=== PATIENT | female | born 1935 | race Caucasian/White ===

== ENCOUNTER 2017-12-25 18:59 | Inpatient (IN) | payer MEDICARE, BC, SELFPAY ==
[2017-12-25 19:01] VITALS: BP 140/90; PULSE 86; RESP 18; TEMP 36.8; O2SAT 97
--- NOTE | 2017-12-25 19:36 | CT_ITS ---
STUDY: CT BRAIN WITHOUT CONTRAST REASON FOR EXAM: Female, 82 years old. Confusion RADIATION DOSAGE (If Supplied By Facility): CTDIvol = ( 44.99 ) mGy, DLP = ( 762.36 ) mGycm TECHNIQUE: Transaxial CT imaging of the brain was performed without administration of intravenous contrast material. Individualized dose optimization techniques were used for this CT. COMPARISON: None. FINDINGS: Normal soft tissue structures. Normal calvarium. There is mild cerebral atrophy with widening of the extra-axial spaces and ventricular dilatation. Normal white matter tracts of the cerebral hemispheres. 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 Normal brainstem. Normal cerebellum. There is no intracranial hemorrhage. There are no findings of an acute ischemic infarction. Normal visualized paranasal sinuses. CT/Brain/Head without Contrast IMPRESSION: Chronic involutional changes of the brain. 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 Electronically Signed: Catracho Mayer MD at 20:44 EDT , Service support ,
--- NOTE | 2017-12-25 19:36 | EKG12_ITS ---
Test Reason : [facility] [place] Blood Pressure : / mmHG Vent. Rate : 073 BPM Atrial Rate : 073 BPM P-R Int : 158 ms QRS Dur : 124 ms QT Int : 432 ms P-R-T Axes : 083 -41 107 degrees QTc Int : 475 ms Normal sinus rhythm Left axis deviation Left bundle branch block Abnormal ECG Confirmed by ARMANDO VOSS, NONA ([id number]), marketing editor CRISTIN WATTERS ([id number] on 12/28/2017 2:48:31 PM Referred By: Confirmed By:NONA ROBERTS MD
--- NOTE | 2017-12-25 19:36 | RAD_ITS ---
STUDY: X-RAY CHEST REASON FOR EXAM: Female, 82 years old. Confusion TECHNIQUE: PA and lateral views of the chest. COMPARISON: None. FINDINGS: There is hyperinflation of the lungs consistent with chronic obstructive lung disease (COPD). There is no demonstrated pleural abnormality. Normal size heart. Normal mediastinum and lauro. Normal visualized pulmonary arteries. There are calcified plaques of the aortic arch. There is demineralization of the osseous structures. Normal visualized ribs, clavicles, and shoulders. There is no demonstrated abnormality of the visualized soft tissue structures of the upper abdomen. RAD/Chest PA and Lateral IMPRESSION: Findings consistent with COPD. Generalized osteopenia. Calcified plaques of the aortic arch. No acute cardiopulmonary disease process is seen. Electronically Signed: Catracho Mayer MD at 21:36 EDT , Service support ,
[2017-12-25 20:07] LABS: Absolute Lymphocyte Count 1.28 X10^3/ul (0.83-4.51); Absolute Neutrophil Count 2.3 X10^3/uL (2.0-7.7); Basophil# 0.03 X10^3/uL; Basophil% 0.7 % (0-1); Eosinophil# 0.05 X10^3/uL; Eosinophils% 1.2 % (0-5); Hematocrit 37.4 % (37-47); Hemoglobin 12.4 g/dl (12.0-15.0); Lymphocyte # 1.28 X10^3/ul (4.0); Lymphocyte % 31.8 % (19-41); Mean Corp Hgb Conc 33.2 g/gl (32-36); Mean Corpuscular Hgb 30.9 pg (27.0-32.0); Mean Corpuscular Volume 93.3 fL (81-99); Mean Platelet Vol. 8.9 fl (6.2-12.0); Monocyte# 0.37 X10^3/uL; Monocyte% 9.2 % (0-10); Neutrophil # 2.28 X10^3/uL (2.7-7.7); Neutrophil % 56.9 % (47-70); Platelet Count 282 K/mm3 (150-450); RBC Distribution Width CV 14.2 % (11.6-14.6); RBC Distribution Width SD 46.8 fl (35.1-43.9); Red Blood Count 4.01 M/mm3 (4.2-5.4)
[2017-12-25 20:10] LABS: POSITIVE COUNT NO; POSITIVE DIFFERENTIAL NO; POSITIVE MORPHOLOGY NO
[2017-12-25 20:18] LABS: AST(SGOT) 18 U/L (15-37); Alanine Aminotransfer ALT/SGPT 21 U/L (13-56); Alkaline Phosphatase 68 U/L (45-117); Anion Gap 8 (5-15); BUN 22 mg/dL (7-18); BUN/Creat Ratio 26.7 RATIO (10-20); Calcium,Total 8.9 mg/dL (8.5-10.1); Chloride 103 mmol/L (98-107); Creatinine, Serum 0.82 mg/dL (0.55-1.02); EST Glomerular Filtration Rate 71 mL/min (>60); Est Glom Filt Rate - Afr Amer 85 mL/min (>60); Estimated Creatinine Clearance 39.91 ml/min; Globulin 3.9 g/dL (2.2-4.2); Glucose 66 mg/dL (74-106); Potassium 3.8 mmol/L (3.5-5.1); Protein, Total 7.9 g/dL (6.4-8.2); Sodium Level 138 mmol/L (136-145)
[2017-12-25 20:48] LABS: Mucous, Urine 0 SEEN /hpf (<or=2+)
[2017-12-25 20:51] LABS: Color, Urine Yellow (Yellow); Glucose, Dipstick Normal (Normal); Ketone-Dipstick 50 mg/dl (Negative); Leukocyte Esterase-Dipstick 500 /ul (Negative); Nitrite-Dipstick Positive (Negative); Occult Blood-Urine 50 /ul (Negative); Protein-Dipstick 15 mg/dl (Negative); Specific Gravity, Urine 1.025 (1.002-1.030); Urine Clarity Sl. Cloudy (Clear); Urine Urobilinogen Normal (Normal)
[2017-12-25 20:52] LABS: Urine Bilirubin Dipstick 1 mg/dL (Negative)
[2017-12-25 20:57] LABS: Bacteria 2+ /hpf (None Seen); Red Blood Cells-Urine 0-5 SEEN /hpf (0-5); Squamous Epithelial Cells - UA 0-5 SEEN /hpf (5-10); White Blood Cells 10-25 SEEN /hpf (0-5)
--- NOTE | 2017-12-25 21:04 | ED.VISSUMM ---
- ER Visit Summary Date of Service: 12/25/17 Chief Complaint: Confusion not able to care for herself History of Present Illness: The patient is a 82 F who presents with confusion. She is brought in by the son and daughter. They both [place]. They have not seen her in about 5 years. They were called by a concerned neighbor. The son checked on her today. Her house was a mess. There were multiple dirty dishes. They states that there were chipmunks in the refrigerator. They state that there was a mummified In the house that they are uncertain when it . They state that 5 years ago the last time they saw her her house was immaculate. The patient denies any complaints or recent illness. She denies any pain fevers vomiting. Physical Examination: Febrile vitals are normal Moist mucous membranes Heart regular rate and rhythm Lungs are clear Abdomen soft Alert but oriented to person only. She knows that she is at a hospital but is unable to tell which one. When asked the month she stated it was either April or May or June. When asked how old she is she stated 65. She does not have focal or lateralizing neurological deficits Test Results: EKG shows normal sinus rhythm at a rate of 73 with a left bundle branch block. Laboratory studies notable for 500 leukocyte esterase positive nitrates 10-25 WBCs and 2+ bacteria in the urine. Chest x-ray shows no acute process on my review. CT of the head shows chronic changes and an old lacunar infarct of the left caudate head. Emergency Department Course and Treatment: Patient will be given IV Rocephin for UTI. Given her inability to care for herself significant confusion she will need admitted and will ultimately likely need placement. Treatment Plan: [] Disposition: Admit Impression: UTI Confusion This note was generated with [employer] dictation software. It may contain incorrect words, spelling, and punctuation that were not noted in review of the chart prior to signing ED Disposition - Plan for ED Patient: Chief Complaint: Mental Status Change Referrals: Care Physician,No Primary [Primary Care Provider] -
[2017-12-25] MEDS: Haloperidol Lactate 5 MG/ML Vial 1 MG IV (21:50)
[2017-12-25 21:55] VITALS: BP 160/66; PULSE 72; PULSE 74; RESP 18; O2SAT 100; O2SAT 99
[2017-12-25 22:08] VITALS: BP 153/78; PULSE 72; RESP 18
[2017-12-25] MEDS: LORazepam 2 MG/ML Syringe 0.5 MG IV (22:19)
[2017-12-25 23:02] VITALS: RESP 18
--- NOTE | 2017-12-25 23:38 | HP.PCM_ITS ---
Problem List (1) Dementia Status: Acute (2) Altered mental status Status: Acute (3) UTI (urinary tract infection) Status: Acute History of Present Illness Date of Admission: 12/25/17 Chief Complaint: Alter mental status The patient is a 82 year old female w/ no known medical history is admitted for alter mental status. She was unable to provide any history. History is taken from her son and daughter who lasted saw her was 5 years ago. They don't know much about their mother. She does not even recognize them. She called her daughter her friend. They claimed that this is not her baseline. Her house was a mess with chipmunks in the refrigeratory and a mummified cat in the house. A concern neighbor alerted them to check on her. They remembered that her house was clean. She denies any other symptoms. Past Medical History Allergies No Known Allergies Allergy (Verified 12/25/17 19:10) Home Medications: Ambulatory Orders Medication Instructions Recorded NK [NK] 12/25/17 Psychiatric History: No pertinent psych hx INCLUSION SPECIAL EDUCATOR History: No pertinent INCLUSION SPECIAL EDUCATOR history Smoking Status: Never smoker Alcohol: None Drugs: None - *Family History Maternal History Items: No pertinent history Review of Systems Unable to obtain accurate/complete ROS d/t: Unable to obtain secondary to dementia. VTE Information - Inpt Only VTE Present on Admission: No VTE Mechan Device Prophylaxis: SCD's VTE Pharm Prophylaxis ordered?: Yes Patient Problems: Active and Suspected Problems Dementia (Acute) Altered mental status (Acute) UTI (urinary tract infection) (Acute) - Physical Exam General: No apparent distress, Confused, Disoriented HEENT: Atraumatic, PERRLA, EOMI, Normocephalic Neck: Supple, No JVD, Negative Carotid Bruits Lungs: Clear to auscultation, Normal air movement Cardiovascular: Regular rate, No murmurs Abdomen: Bowel Sounds Present, Soft, Non Tender Extremities: No edema, Capillary Refill Less than 3 Seconds Skin: No rashes, No breakdown Musculoskeletal: No Tenderness to Palpation of Joints or Extremities Neurological: Cranial nerves II-XII grossly intact Psych/Mental Status: Impulsive, Irrational Behavior Vital Signs Temp Pulse Resp BP Pulse Ox 98.2 F 72 18 153/78 H 100 12/25/17 19:01 12/25/17 22:08 12/25/17 23:02 12/25/17 22:08 12/25/17 21:55 Oxygen Delivery Method Room Air Weight: 48.081 kg Body Mass Index (BMI) 20.0 Laboratory Tests Past 24 Hrs 12/25/17 12/25/17 12/25/17 19:48 19:48 20:40 WBC 4.0 L RBC 4.01 L Hgb 12.4 Hct 37.4 MCV 93.3 MCH 30.9 MCHC 33.2 RDW 14.2 RDW Differential 46.8 H Plt Count 282 MPV 8.9 Immature Gran % (Auto) 0.200 Neut % (Auto) 56.9 Lymph % (Auto) 31.8 [place] % (Auto) 9.2 Eos % (Auto) 1.2 Baso % (Auto) 0.7 Absolute Neuts (auto) 2.3 Absolute Lymphs (auto) 1.28 Total Counted Not Reportable Sodium 138 Potassium 3.8 Chloride 103 Carbon Dioxide 27.0 Anion Gap 8 BUN 22 H Creatinine 0.82 Estim Creat Clear Calc 39.91 Est GFR (MDRD) Af Amer 85 Est GFR (MDRD) Non-Af 71 BUN/Creatinine Ratio 26.7 H Glucose 66 L Calcium 8.9 Total Bilirubin 0.80 AST 18 ALT 21 Alkaline Phosphatase 68 Total Protein 7.9 Albumin 4.0 Globulin 3.9 Albumin/Globulin Ratio 1.0 Urine Color Yellow Urine Clarity Sl. Cloudy Urine pH 5.0 Ur Specific [place] 1.025 Urine Protein 15 H Urine Glucose (UA) Normal Urine Ketones 50 H Urine Occult Blood 50 H Urine Nitrite Positive H Urine Bilirubin 1 H Urine Urobilinogen Normal Ur Leukocyte Esterase 500 H Urine RBC 0-5 SEEN Urine WBC 10-25 SEEN Ur Squamous Epith Cells 0-5 SEEN Urine Bacteria 2+ Urine Mucus 0 SEEN Assessment/Plan Active and Suspected Problems Dementia (Acute) Altered mental status (Acute) UTI (urinary tract infection) (Acute) 82 year old female w/ no known medical history is admitted for alter mental status. 1) Alter mental status: Unclear baseline. CT head negative. Will get folate / B12, ammonia, TSH, RPR, and cultures. Possible secondary to UTI with underlying dementia. Consulted neurology. 2) UTI: Cultures pending. C/w cipro. Pt is refusing IV placement. 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 CT disclosed old infarcts. Supportive care. 4) Dispo: Probably will need placement.
[2017-12-26 00:35] VITALS: BP 177/72; PULSE 77; RESP 14; TEMP 36.8; O2SAT 95
[2017-12-26 00:43] VITALS: BMI 14.0
--- NOTE | 2017-12-26 01:20 | NURSING ---
Pt resistive to call care. This RN and discharge specialist and INSTRUMENT STERILIZERChristine attempted to remove patients gown and put mechatronics engineer on pt. Pt becomes combative when attempting remove clothes, connect mechatronics engineer or establish IV access. Pt resisting all care and assessment by this RN. Doctor notified of pt's agitation and resistance to care.
--- NOTE | 2017-12-26 01:31 | NURSING ---
Pt resistive to all care. Assessment performed to the best of this RN's ability. Pt becomes combative when attempting to perform assessments or ask admission questions.
[2017-12-26 01:35] LABS: Ammonia < 10.0 umol/L (11-32)
[2017-12-26 01:50] LABS: Thyroid Stim Hormone (TSH) 1.46 uIU/mL (0.358-3.74)
[2017-12-26 04:47] LABS: Rapid Plasmin Reagin (RPR) NONREACTIVE (NONREACTIVE)
--- NOTE | 2017-12-26 05:37 | NURSING ---
Pt continuing to be resistive to care. Assessment attempted by this RN to the best of my ability. Unable to complete NIH stroke assessment. motorcycle builder Steven Martinez notified of pt being resistive to care. Dr. Salgado notified of pt being resistive to care.
[2017-12-26 06:26] VITALS: BP 128/61; PULSE 73; RESP 14; TEMP 36.8; O2SAT 97
[2017-12-26 07:03] LABS: Hematocrit 35.2 % (37-47); Hemoglobin 11.6 g/dl (12.0-15.0); Mean Corpuscular Hgb 30.9 pg (27.0-32.0); Mean Corpuscular Volume 93.9 fL (81-99); Platelet Count 248 K/mm3 (150-450); RBC Distribution Width SD 46.2 fl (35.1-43.9); Red Blood Count 3.75 M/mm3 (4.2-5.4); White Blood Count 3.2 K/mm3 (4.4-11.0)
[2017-12-26 07:05] LABS: Scan Indicated on CBC? Y/N NO
[2017-12-26 08:04] LABS: Anion Gap 12 (5-15); BUN 20 mg/dL (7-18); BUN/Creat Ratio 44.7 RATIO (10-20); Calcium,Total 8.4 mg/dL (8.5-10.1); Chloride 106 mmol/L (98-107); Cholesterol 267 mg/dL (200); Creatinine, Serum 0.45 mg/dL (0.55-1.02); EST Glomerular Filtration Rate 143 mL/min (>60); Est Glom Filt Rate - Afr Amer 173 mL/min (>60); Estimated Creatinine Clearance 23.08 ml/min; Glucose 49 mg/dL (74-106); High Density Lipoprotein 76 mg/dL; Potassium 3.7 mmol/L (3.5-5.1); Sodium Level 140 mmol/L (136-145); Triglycerides 81 mg/dL; Very Low Density Lipoprotein 16 mg/dL (5-40)
[2017-12-26] MEDS: Ciprofloxacin 500 MG Tablet PO ×2 (09:08→22:30)
[2017-12-26] MEDS: LORazepam 2 MG/ML Syringe 1 MG IM ×3 (09:48→19:46)
[2017-12-26 11:29] VITALS: BP 129/76; PULSE 97; RESP 16; TEMP 36.9; O2SAT 96
--- NOTE | 2017-12-26 12:37 | NURSING ---
pt very confused, refusing care
--- NOTE | 2017-12-26 12:37 | NURSING ---
pt refusing to stay in room. taking turns with other staff members so that someone is one on one with patient
[2017-12-26 13:13] LABS: Vitamin B12 521 pg/mL (211-911)
--- NOTE | 2017-12-26 13:26 | PCM.PN.HOSP ---
Patient Problems: Active and Suspected Problems Dementia (Acute) Altered mental status (Acute) UTI (urinary tract infection) (Acute) Subjective: confused. talking of many tangential topics many of which make no sense. Vitals/I&O's: Vital Signs Temp Pulse Resp BP Pulse Ox 36.9 C 97 16 129/76 H 96 12/26/17 11:29 12/26/17 11:29 12/26/17 11:29 12/26/17 11:29 12/26/17 11:29 Oxygen Delivery Method Room Air Weight: 33.7 kg Body Mass Index (BMI) 20.0 Intake and Output for Last 24 Hours 12/24/17 12/25/17 12/26/17 23:59 23:59 23:59 Intake Total 100 / 100 Balance 100 / 100 General: Cooperative, No apparent distress, Confused HEENT: Atraumatic, Normocephalic Neck: No Nodes, Thyroid Normal Size and Texture Lungs: Clear to auscultation, Normal air movement, No rhonchi, No wheeze Cardiovascular: Regular rate, Regular Rhythm, Normal S1, Normal S2 Abdomen: Bowel Sounds Present, Soft, Non Tender, Non-Distended, No Hepato-splenomegaly Extremities: No edema, No Calf Tenderness Skin: No rashes, No breakdown Musculoskeletal: No Tenderness to Palpation of Joints or Extremities, No Muscle Wasting Neurological: Cranial nerves II-XII grossly intact, Neuro grossly intact, Coordination normal, Gait narrow based and stable Psych/Mental Status: Normal Affect, Appropriate Laboratory Results 12/26/17 00:55: Troponin I < 0.015, Folate 18.20, TSH 1.46 12/26/17 00:55: Ammonia < 10.0 L 12/26/17 00:55: RPR NONREACTIVE 12/26/17 00:55: Vitamin B12 521 12/26/17 05:58: WBC 3.2 L, RBC 3.75 L, Hgb 11.6 L, Hct 35.2 L, MCV 93.9, MCH 30.9, MCHC 33.0, RDW 14.0, RDW Differential 46.2 H, Plt Count 248, MPV 9.0 12/26/17 05:58: Sodium 140, Potassium 3.7, Chloride 106, Carbon Dioxide 22.0, Anion Gap 12, BUN 20 H, Creatinine 0.45 L, Estim Creat Clear Calc 23.08, Est GFR (MDRD) Af Amer 173, Est GFR (MDRD) Non-Af 143, BUN/Creatinine Ratio 44.7 H, Glucose 49 L, Calcium 8.4 L, Triglycerides 81, Cholesterol 267 H, LDL Cholesterol 175 H, VLDL Cholesterol 16, HDL Cholesterol 76 Current Medications Ciprofloxacin HCl (Cipro) 500 mg PO BID PENDING SALE TO [facility] Last Admin: 12/26/17 09:08 Dose: 500 mg Enoxaparin Sodium (Lovenox) 40 mg SC DAILY@0600 PENDING S[facility] TO [facility] Last Admin: 12/26/17 05:27 Dose: Not Given Lorazepam (Ativan) 1 mg IM Q4H PRN PRN PRN Reason: AGITATION Last Admin: 12/26/17 09:48 Dose: 1 mg Magnesium Hydroxide (Milk Of Magnesia) 30 ml PO DAILY PRN PRN Reason: Constipation Nutritional Formula (Lactose Free) (Ensure Enlive) 120 ml PO 4X/DAY [facility]END[facility] S[facility] TO [facility] Last Admin: 12/26/17 09:08 Dose: Not Given Medical Necessity - Tobacco Use Smoking Status: Unknown if ever smoked Assessment/Plan Active and Suspected Problems Dementia (Acute) Altered mental status (Acute) UTI (urinary tract infection) (Acute) 1. confusion: as patient has been living a secluded life with no meaningful contact with family in years, this is not acute. no further inpatient work up is necessary B12, folate and TSH are WNL I suspect patient has underlying psych issues that may have been much milder when she lucid, that are now compounded by possibly underlying dementia much of her work up for dementia and psych issues can be assessed outside of the hospital however, given patient's inability to adequately care for herself, i feel she would be best suited in a [facility] until to help tease out the separate issues patient has no further inpatient hospitalization needs. I do not feel an MRI is necessary as she has no focal deficits the confusion may be new to the family, but they have not had contact with her in ~5 years 2. UTI: may be contributing to a degree to her confusion, but not much of this is most likely chronic continue cipro through 01/01 no culture was done, since already on abx, I will not order 3. DVT proph: LMWH. Code Visit Inpatient E&M: 73378 Subs Hosp L3
--- NOTE | 2017-12-26 13:37 | PN_ITS ---
Patient Problems: Active and Suspected Problems Dementia (Acute) Altered mental status (Acute) UTI (urinary tract infection) (Acute) Subjective: confused. talking of many tangential topics many of which make no sense. Vitals/I&O's: Vital Signs Temp Pulse Resp BP Pulse Ox 36.9 C 97 16 129/76 H 96 12/26/17 11:29 12/26/17 11:29 12/26/17 11:29 12/26/17 11:29 12/26/17 11:29 Oxygen Delivery Method Room Air Weight: 33.7 kg Body Mass Index (BMI) 20.0 Intake and Output for Last 24 Hours 12/24/17 12/25/17 12/26/17 23:59 23:59 23:59 Intake Total 100 / 100 Balance 100 / 100 General: Cooperative, No apparent distress, Confused HEENT: Atraumatic, Normocephalic Neck: No Nodes, Thyroid Normal Size and Texture Lungs: Clear to auscultation, Normal air movement, No rhonchi, No wheeze Cardiovascular: Regular rate, Regular Rhythm, Normal S1, Normal S2 Abdomen: Bowel Sounds Present, Soft, Non Tender, Non-Distended, No Hepato- splenomegaly Extremities: No edema, No Calf Tenderness Skin: No rashes, No breakdown Musculoskeletal: No Tenderness to Palpation of Joints or Extremities, No Muscle Wasting Neurological: Cranial nerves II-XII grossly intact, Neuro grossly intact, Coordination normal, Gait narrow based and stable Psych/Mental Status: Normal Affect, Appropriate Laboratory Results 12/26/17 00:55: Troponin I < 0.015, Folate 18.20, TSH 1.46 12/26/17 00:55: Ammonia < 10.0 L 12/26/17 00:55: RPR NONREACTIVE 12/26/17 00:55: Vitamin B12 521 12/26/17 05:58: WBC 3.2 L, RBC 3.75 L, Hgb 11.6 L, Hct 35.2 L, MCV 93.9, MCH 30.9, MCHC 33.0, RDW 14.0, RDW Differential 46.2 H, Plt Count 248, MPV 9.0 12/26/17 05:58: Sodium 140, Potassium 3.7, Chloride 106, Carbon Dioxide 22.0, Anion Gap 12, BUN 20 H, Creatinine 0.45 L, Estim Creat Clear Calc 23.08, Est GFR (MDRD) Af Amer 173, Est GFR (MDRD) Non-Af 143, BUN/Creatinine Ratio 44.7 H, Glucose 49 L, Calcium 8.4 L, Triglycerides 81, Cholesterol 267 H, LDL Cholesterol 175 H, VLDL Cholesterol 16, HDL Cholesterol 76 Current Medications Ciprofloxacin HCl (Cipro) 500 mg PO BID [facility] Last Admin: 12/26/17 09:08 Dose: 500 mg Enoxaparin Sodium (Lovenox) 40 mg SC DAILY@0600 [facility] Last Admin: 12/26/17 05:27 Dose: Not Given Lorazepam (Ativan) 1 mg IM Q4H PRN PRN PRN Reason: AGITATION Last Admin: 12/26/17 09:48 Dose: 1 mg Magnesium Hydroxide (Milk Of Magnesia) 30 ml PO DAILY PRN PRN Reason: Constipation Nutritional Formula (Lactose Free) (Ensure Enlive) 120 ml PO 4X/DAY [facility] Last Admin: 12/26/17 09:08 Dose: Not Given Medical Necessity - Tobacco Use Smoking Status: Unknown if ever smoked Assessment/Plan Active and Suspected Problems Dementia (Acute) Altered mental status (Acute) UTI (urinary tract infection) (Acute) 1. confusion: * as patient has been living a secluded life with no meaningful contact with family in years, this is not acute. * no further inpatient work up is necessary * B12, folate and TSH are WNL * I suspect patient has underlying psych issues that may have been much milder when she lucid, that are now compounded by possibly underlying dementia * much of her work up for dementia and psych issues can be assessed outside of the hospital * however, given patient's inability to adequately care for herself, i feel she would be best suited in a [facility] until to help tease out the separate issues * patient has no further inpatient hospitalization needs. I do not feel an MRI is necessary as she has no focal deficits * the confusion may be new to the family, but they have not had contact with her in ~5 years 2. UTI: * may be contributing to a degree to her confusion, but not much of this is most likely chronic * continue cipro through 01/01 * no culture was done, since already on abx, I will not order 3. DVT proph: LMWH. Code Visit Inpatient E&M: [id number] Subs Hosp L3
[2017-12-26 16:28] LABS: Amphetamine Urine VISTA NEGATIVE (<1000 ng/mL); Barbiturate Urine VISTA NEGATIVE (< 200 ng/mL); Benzodiazepine Urine VISTA NEGATIVE (< 200 ng/mL); Cocaine Urine VISTA NEGATIVE (< 300 ng/mL); Ecstacy Urine VISTA NEGATIVE (< 500 ng/mL); Methadone Urine VISTA NEGATIVE (< 300 ng/mL); PCP Urine VISTA NEGATIVE (< 25 ng/mL); THC Urine VISTA NEGATIVE (< 50 ng/mL); Vista UDS pH Range 4
[2017-12-26 17:20] VITALS: BP 143/87; PULSE 93; RESP 16; TEMP 36.4; O2SAT 94
[2017-12-26 22:21] VITALS: BP 163/74; PULSE 76; RESP 16; TEMP 36.9; O2SAT 98
[2017-12-26] MEDS: QUEtiapine 25 MG Tablet PO (22:30)
[2017-12-27 04:55] VITALS: BP 144/92; PULSE 87; RESP 16; TEMP 36.9; O2SAT 98
--- NOTE | 2017-12-27 09:29 | PCM.PN.HOSP ---
Patient Problems: Active and Suspected Problems Dementia (Acute) Altered mental status (Acute) UTI (urinary tract infection) (Acute) Subjective: Was marked around the hallways much all day yesterday. Today, patient is sleeping. According to the sitter at her bedside, no issues this morning. Vitals/I&O's: Vital Signs Temp Pulse Resp BP Pulse Ox 36.9 C 87 16 144/92 H 98 12/27/17 04:55 12/27/17 04:55 12/27/17 04:55 12/27/17 04:55 12/27/17 04:55 Oxygen Delivery Method Room Air Weight: 33.7 kg Body Mass Index (BMI) 20.0 Intake and Output for Last 24 Hours 12/25/17 12/26/17 12/27/17 23:59 23:59 23:59 Intake Total 250 / 250 0 / 0 Balance 250 / 250 0 / 0 General: - - Being, did not awake. Afebrile. HEENT: Atraumatic, Normocephalic Neck: No Nodes, Thyroid Normal Size and Texture Musculoskeletal: Cachexia, Muscle Wasting Laboratory Results 12/26/17 00:55: Vitamin B12 521 Current Medications Ciprofloxacin HCl (Cipro) 500 mg PO BID COUNT [facility]CLUD[facility] Last Admin: 12/26/17 22:30 Dose: 500 mg Enoxaparin Sodium (Lovenox) 40 mg SC DAILY@0600 COUNT INCLUDES THE [facility] Last Admin: 12/27/17 05:03 Dose: Not Given Lorazepam (Ativan) 1 mg IM Q4H PRN PRN PRN Reason: AGITATION Last Admin: 12/26/17 19:46 Dose: 1 mg Magnesium Hydroxide (Milk Of Magnesia) 30 ml PO DAILY PRN PRN Reason: Constipation Nutritional Formula (Lactose Free) (Ensure Enlive) 120 ml PO 4X/DAY COUNT INCLUDES THE [facility] Last Admin: 12/26/17 22:30 Dose: 120 ml Quetiapine Fumarate (Seroquel) 25 mg PO QHS COUNT INCLUDES THE [facility] Last Admin: 12/26/17 22:30 Dose: 25 mg Medical Necessity - Tobacco Use Smoking Status: Unknown if ever smoked Assessment/Plan Active and Suspected Problems Dementia (Acute) Altered mental status (Acute) UTI (urinary tract infection) (Acute) 1. confusion: as patient has been living a secluded life with no meaningful contact with family in years, this is not acute. no further inpatient work up is necessary B12, folate and TSH are WNL I suspect patient has underlying psych issues that may have been much milder when she lucid, that are now compounded by possibly underlying dementia much of her work up for dementia and psych issues can be assessed outside of the hospital however, given patient's inability to adequately care for herself, i feel she would be best suited in a [facility] until to help tease out the separate issues patient has no further inpatient hospitalization needs. I do not feel an MRI is necessary as she has no focal deficits the confusion may be new to the family, but they have not had contact with her in ~5 years Patient has been pink slipped. Patient is medically stable for discharge to an inpatient psych unit. 2. UTI: may be contributing to a degree to her confusion, but not much of this is most likely chronic continue cipro through 01/01 no culture was done, since already on abx, I will not order 3. DVT proph: LMWH. Code Visit Inpatient E&M: [id number] Subs Hosp L2
--- NOTE | 2017-12-27 09:32 | PN_ITS ---
Patient Problems: Active and Suspected Problems Dementia (Acute) Altered mental status (Acute) UTI (urinary tract infection) (Acute) Subjective: Was marked around the hallways much all day yesterday. Today, patient is sleeping. According to the sitter at her bedside, no issues this morning. Vitals/I&O's: Vital Signs Temp Pulse Resp BP Pulse Ox 36.9 C 87 16 144/92 H 98 12/27/17 04:55 12/27/17 04:55 12/27/17 04:55 12/27/17 04:55 12/27/17 04:55 Oxygen Delivery Method Room Air Weight: 33.7 kg Body Mass Index (BMI) 20.0 Intake and Output for Last 24 Hours 12/25/17 12/26/17 12/27/17 23:59 23:59 23:59 Intake Total 250 / 250 0 / 0 Balance 250 / 250 0 / 0 General: - - Being, did not awake. Afebrile. HEENT: Atraumatic, Normocephalic Neck: No Nodes, Thyroid Normal Size and Texture Musculoskeletal: Cachexia, Muscle Wasting Laboratory Results 12/26/17 00:55: Vitamin B12 521 Current Medications Ciprofloxacin HCl (Cipro) 500 mg PO BID [facility] Last Admin: 12/26/17 22:30 Dose: 500 mg Enoxaparin Sodium (Lovenox) 40 mg SC DAILY@0600 [facility] Last Admin: 12/27/17 05:03 Dose: Not Given Lorazepam (Ativan) 1 mg IM Q4H PRN PRN PRN Reason: AGITATION Last Admin: 12/26/17 19:46 Dose: 1 mg Magnesium Hydroxide (Milk Of Magnesia) 30 ml PO DAILY PRN PRN Reason: Constipation Nutritional Formula (Lactose Free) (Ensure Enlive) 120 ml PO 4X/DAY [facility] Last Admin: 12/26/17 22:30 Dose: 120 ml Quetiapine Fumarate (Seroquel) 25 mg PO QHS [facility] Last Admin: 12/26/17 22:30 Dose: 25 mg Medical Necessity - Tobacco Use Smoking Status: Unknown if ever smoked Assessment/Plan Active and Suspected Problems Dementia (Acute) Altered mental status (Acute) UTI (urinary tract infection) (Acute) 1. confusion: * as patient has been living a secluded life with no meaningful contact with family in years, this is not acute. * no further inpatient work up is necessary * B12, folate and TSH are WNL * I suspect patient has underlying psych issues that may have been much milder when she lucid, that are now compounded by possibly underlying dementia * much of her work up for dementia and psych issues can be assessed outside of the hospital * however, given patient's inability to adequately care for herself, i feel she would be best suited in a [facility] until to help tease out the separate issues * patient has no further inpatient hospitalization needs. I do not feel an MRI is necessary as she has no focal deficits * the confusion may be new to the family, but they have not had contact with her in ~5 years * Patient has been pink slipped. * Patient is medically stable for discharge to an inpatient psych unit. 2. UTI: * may be contributing to a degree to her confusion, but not much of this is most likely chronic * continue cipro through 01/01 * no culture was done, since already on abx, I will not order 3. DVT proph: LMWH. Code Visit Inpatient E&M: [id number] Subs Hosp L2
[2017-12-27 09:47] VITALS: BP 158/79; PULSE 71; RESP 16; TEMP 36.7; O2SAT 98
[2017-12-27] MEDS: Ciprofloxacin 500 MG Tablet PO (09:48)
--- NOTE | 2017-12-27 10:02 | PCM.DC ---
- Discharge Diagnoses Current Active Problems: Current Active and Chronic Problems Dementia (Acute) Altered mental status (Acute) UTI (urinary tract infection) (Acute) You will use the following diet at home:: No restrictions Your food should be the consistency of: Regular Your liquids should be the consistency of: Regular/Thin Discharge Activity: May Not Drive Allergies/Adverse Reactions: Allergies No Known Allergies Allergy (Verified 12/25/17 19:10) Medications to take at Discharge Ciprofloxacin [Cipro] 500 mg PO BID tablet 12/27/17 Ensure Enlive 120 ml PO 4X/DAY liquid 12/27/17 Magnesium Hydroxide [Milk Of Magnesia] 30 ml PO DAILY PRN udc 12/27/17 Quetiapine Fumarate [Seroquel] 25 mg PO QHS tablet 12/27/17 Primary Care Physician: Care Physician,No Primary [Primary Care Provider] - Proposed Discharge Date: 12/27/17
--- NOTE | 2017-12-27 10:03 | PCM.DC.SUM ---
Discharge Date and Diagnosis - Problem List Patient Problems: Active and Suspected Problems Dementia (Acute) Altered mental status (Acute) UTI (urinary tract infection) (Acute) Date of Admission: 12/25/17 Date of Discharge: 12/27/17 - Primary Discharge Diagnosis Active and Suspected Problems Dementia (Acute) Altered mental status (Acute) UTI (urinary tract infection) (Acute) Hospital Course and Treatment Imaging Results: Clinical Impression(s) from Imaging Studies Brain CT 12/25/17 19:36 IMPRESSION: Chronic involutional changes of the brain. 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 Electronically Signed: Catracho Mayer MD at 20:44 EDT , Service support , Chest X-Ray 12/25/17 19:36 IMPRESSION: Findings consistent with COPD. Generalized osteopenia. Calcified plaques of the aortic arch. No acute cardiopulmonary disease process is seen. Electronically Signed: Catrcaho aMyer MD at 21:36 EDT , Service support , Consultations 12/26/17 14:00 Consult: Mental Health/Crisis Routine Reason for consult?: [facility] needed Date Notified:: 12/26/17 Time notified:: 14:00 Operations: None Procedures: None Summary of Care Provided: The patient is a 82 year old F found confused. Patient had squirrels in her refrigerator and a mummified cat in her house. Unclear how new this is as patient has been is estranged from her family for many years. Patient underwent a workup that was pretty much unremarkable except for urinary tract infection. It is of my opinion, that this confusion is not new and likely component of an underlying psychiatric diagnosis has not been fully elucidated on top of underlying dementia. Patient will be discharged to psychiatric unit once an accepting facility has been established. 1. confusion: as patient has been living a secluded life with no meaningful contact with family in years, this is not acute. no further inpatient work up is necessary B12, folate and TSH are WNL I suspect patient has underlying psych issues that may have been much milder when she lucid, that are now compounded by possibly underlying dementia much of her work up for dementia and psych issues can be assessed outside of the hospital however, given patient's inability to adequately care for herself, i feel she would be best suited in a [facility] until to help tease out the separate issues patient has no further inpatient hospitalization needs. I do not feel an MRI is necessary as she has no focal deficits the confusion may be new to the family, but they have not had contact with her in ~5 years Patient has been pink slipped. Patient is medically stable for discharge to an inpatient psych unit. 2. UTI: may be contributing to a degree to her confusion, but not much of this is most likely chronic continue cipro through 01/01 no culture was done, since already on abx, I will not order[] Discharge Diet: No Restrictions Discharge Activity: May Not Drive Call your doctor if you observe: Fever of 101 or Higher, Inability to urinate Home Medications: Medications to take at Discharge Ciprofloxacin [Cipro] 500 mg PO BID tablet 12/27/17 Ensure Enlive 120 ml PO 4X/DAY liquid 12/27/17 Magnesium Hydroxide [Milk Of Magnesia] 30 ml PO DAILY PRN udc 12/27/17 Quetiapine Fumarate [Seroquel] 25 mg PO QHS tablet 12/27/17 Primary Care Physician: Care Physician,No Primary [Primary Care Provider] - Disposition: Psych Hospital or Unit Minutes spent on discharge:: 32 Patient Condition:: Stable Medical Necessity - Tobacco Use Smoking Status: Unknown if ever smoked Meaningful Use Info Meaningful Use Diagnoses (Choose all that apply): None applicable Code Visit Inpatient E&M: 03667 Disch Hosp
--- NOTE | 2017-12-27 10:06 | DS.PCM_ITS ---
Discharge Date and Diagnosis - Problem List Patient Problems: Active and Suspected Problems Dementia (Acute) Altered mental status (Acute) UTI (urinary tract infection) (Acute) Date of Admission: 12/25/17 Date of Discharge: 12/27/17 - Primary Discharge Diagnosis Active and Suspected Problems Dementia (Acute) Altered mental status (Acute) UTI (urinary tract infection) (Acute) Hospital Course and Treatment Imaging Results: Clinical Impression(s) from Imaging Studies Brain CT 12/25/17 19:36 IMPRESSION: Chronic involutional changes of the brain. 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 Electronically Signed: Catracho Mayer MD at 20:44 EDT , Service support , Chest X-Ray 12/25/17 19:36 IMPRESSION: Findings consistent with COPD. Generalized osteopenia. Calcified plaques of the aortic arch. No acute cardiopulmonary disease process is seen. Electronically Signed: Catracho Mayer MD at 21:36 EDT , Service support , Consultations 12/26/17 14:00 Consult: Mental Health/Crisis Routine Reason for consult?: [facility] needed Date Notified:: 12/26/17 Time notified:: 14:00 Operations: None Procedures: None Summary of Care Provided: The patient is a 82 year old F found confused. Patient had squirrels in her refrigerator and a mummified cat in her house. Unclear how new this is as patient has been is estranged from her family for many years. Patient underwent a workup that was pretty much unremarkable except for urinary tract infection. It is of my opinion, that this confusion is not new and likely component of an underlying psychiatric diagnosis has not been fully elucidated on top of underlying dementia. Patient will be discharged to psychiatric unit once an accepting facility has been established. 1. confusion: * as patient has been living a secluded life with no meaningful contact with family in years, this is not acute. * no further inpatient work up is necessary * B12, folate and TSH are WNL * I suspect patient has underlying psych issues that may have been much milder when she lucid, that are now compounded by possibly underlying dementia * much of her work up for dementia and psych issues can be assessed outside of the hospital * however, given patient's inability to adequately care for herself, i feel she would be best suited in a [facility] until to help tease out the separate issues * patient has no further inpatient hospitalization needs. I do not feel an MRI is necessary as she has no focal deficits * the confusion may be new to the family, but they have not had contact with her in ~5 years * Patient has been pink slipped. * Patient is medically stable for discharge to an inpatient psych unit. 2. UTI: * may be contributing to a degree to her confusion, but not much of this is most likely chronic * continue cipro through 01/01 * no culture was done, since already on abx, I will not order[] Discharge Diet: No Restrictions Discharge Activity: May Not Drive Call your doctor if you observe: Fever of 101 or Higher, Inability to urinate Home Medications: Medications to take at Discharge Ciprofloxacin [Cipro] 500 mg PO BID tablet 12/27/17 Ensure Enlive 120 ml PO 4X/DAY liquid 12/27/17 Magnesium Hydroxide [Milk Of Magnesia] 30 ml PO DAILY PRN udc 12/27/17 Quetiapine Fumarate [Seroquel] 25 mg PO QHS tablet 12/27/17 Primary Care Physician: Care Physician,No Primary [Primary Care Provider] - Disposition: Psych Hospital or Unit Minutes spent on discharge:: 32 Patient Condition:: Stable Medical Necessity - Tobacco Use Smoking Status: Unknown if ever smoked Meaningful Use Info Meaningful Use Diagnoses (Choose all that apply): None applicable Code Visit Inpatient E&M: 82547 Disch Hosp
--- NOTE | 2017-12-27 11:06 | CASEMGMT ---
[facility]is is here to evaluate patient for placement. Kathy RODRIGUEZ [employer]
[2017-12-27 14:48] VITALS: BP 102/59; PULSE 81; RESP 16; TEMP 36.7; O2SAT 98
--- NOTE | 2018-03-24 00:18 | ED.RN ---
obtained information for [place] [employer] ajit for discharge of patient at this time
== END 2017-12-27 16:40 | disposition other institution (70) | DRG 689 ==
LOC: ED 20:23 → PCU 23:52
PROVIDERS: Admitting Provider Internal Medicine; Emergency Provider Emergency Medicine
DX: N39.0 Urinary tract infection, site not specified (principal); E43 Unspecified severe protein-calorie malnutrition; Z68.1 Body mass index [BMI] 19.9 or less, adult; F03.90 Unspecified dementia, unspecified severity, without behavioral disturbance, psychotic disturbance, mood disturbance, and anxiety; I44.7 Left bundle-branch block, unspecified
CPT/HCPCS: 36415; 70450; 71046; 80048; 80053; 80061; 80307; 81001; 82140; 82607; 82746; 84443; 84484; 85025; 85027; 86592; 87040; 92507; 93005; 97161; 97165; 97802; 99285; A4216